=== PATIENT | female | born 1995 ===

== ENCOUNTER 2017-08-31 21:22 | Emergency (ER) | payer MEDICAID ==
[2017-08-31 21:38] VITALS: BP 130/85; PULSE 75; RESP 13; TEMP 98.3; O2SAT 100
[2017-08-31 22:26] LABS: BASO # 0.1 K/uL (0.0-0.2); BASO % 1.3 % (0.0-2.0); EOS % 0.7 % (0.0-4.0); HEMOGLOBIN 12.2 g/dL (12.0-16.0); LYMPH # 2.3 K/uL (1.0-4.3); LYMPH % 34.9 % (20.0-40.0); MEAN CELL VOLUME 76.5 fl (81.0-99.0); MEAN CORPUSCULAR HEMOGLOBIN 24.7 pg (27.0-31.0); MEAN CORPUSCULAR HGB CONC 32.3 g/dL (33.0-37.0); MEAN PLATELET VOLUME 8.9 fl (7.2-11.7); MONO # 0.5 K/uL (0.0-0.8); NEUT # 3.7 K/uL (1.8-7.0); NEUT % 56.1 % (50.0-75.0); NRBC % 0.1 % (0.0-0.0); RBC 4.93 Mil/uL (3.80-5.20); RED CELL DISTRIBUTION WIDTH 15.7 % (11.5-14.5); WHITE BLOOD COUNT 6.6 K/uL (4.8-10.8)
[2017-08-31 22:36] LABS: ALBUMIN 4.7 g/dL (3.5-5.0); ALT/SGPT 30 U/L (9-52); AST/SGOT 21 U/L (14-36); BLOOD UREA NITROGEN 13 mg/dl (7-17); CALCIUM 10.1 mg/dL (8.4-10.2); GFR AFRICAN-AMERICAN > 60; GFR NON-AFRICAN AMERICAN > 60
[2017-08-31 22:41] LABS: ALB/GLOB RATIO 1.2 (1.0-2.1)
[2017-08-31 22:53] LABS: INR 1.1 (0.9-1.2); PARTIAL THROMBOPLASTIN TIME 29.3 Seconds (25.6-37.1); PROTHROMBIN TIME 11.7 Seconds (9.8-13.1)
--- NOTE | 2017-08-31 23:18 | ED PDOC ---
Upper Extremity Pain/Injury Time Seen by Provider: 08/31/17 21:42 Chief Complaint (Nursing): Chest Pain Chief Complaint (Provider): Chest Pain History Per: Patient History/Exam Limitations: no limitations Onset/Duration Of Symptoms: Days (x1) Current Symptoms Are (Timing): Still Present Additional Complaint(s): 21 year old female who presents to the emergency department with a complaint of bilateral neck pain radiating to bilateral shoulders associated with left-sided chest pain exasperated with leaning head back and mild shortness of breath ongoing since this morning. Denied any fever, chills, cough, trauma, injury, headache, dizziness, leg pain or swelling. Of note, patient reported recent travel from [place] 2 weeks ago. LMP: 04/2016 PMD: Ryne Barfield MD Past Medical History Reviewed: Historical Data, Nursing Documentation, Vital Signs Vital Signs: Last Vital Signs Temp 98.3 F 08/31/17 21:34 Pulse 75 08/31/17 21:34 Resp 13 08/31/17 21:34 BP 130/85 08/31/17 21:34 Pulse Ox 100 08/31/17 21:34 - Medical History PMH: No Chronic Diseases - Surgical History Surgical History: Denies: No Surg Hx - Family History Family History: States: Unknown Family Hx - Social History Current smoker - smoking cessation education provided: No Alcohol: None Drugs: Denies - Immunization History Hx Tetanus Toxoid Vaccination: No Hx Influenza Vaccination: Yes Hx Pneumococcal Vaccination: No - Home Medications Home Medications: Ambulatory Orders Medication Instructions Recorded Multivit/Folic Acid/I 1 tab PO DAILY #30 tab 12/13/14 [ Plus] Nitrofurantoin Macrocrystals 100 mg PO BID #14 cap 04/12/16 [Macrobid] Cyclobenzaprine [Cyclobenzaprine 10 mg PO TID PRN #15 tab 08/31/17 HCl] Naproxen 500 mg PO BID #30 tab 08/31/17 - Allergies Allergies/Adverse Reactions: Allergies Allergy/AdvReac Type Severity Reaction Status Date / Time No Known Allergies Allergy Verified 08/31/17 21:38 Review of Systems ROS Statement: Except As Marked, All Systems Reviewed And Found Negative Constitutional: Negative for: Fever, Chills Cardiovascular: Positive for: Chest Pain (left-sided) Respiratory: Positive for: Shortness of Breath (mild). Negative for: Cough Musculoskeletal: Positive for: Neck Pain (bilateral), Shoulder Pain (bilateral) . Negative for: Leg Pain (or swelling), Other (trauma/injury) Neurological: Negative for: Headache, Dizziness Physical Exam - Reviewed Nursing Documentation Reviewed: Yes Vital Signs Reviewed: Yes - Physical Exam Appears: Positive for: Well (sitting up comfortably, is smiling), Non-toxic, No Acute Distress Head Exam: Positive for: ATRAUMATIC, NORMAL INSPECTION, NORMOCEPHALIC Skin: Positive for: Normal Color, Warm, Dry Eye Exam: Positive for: Normal appearance, EOMI, PERRL ENT: Positive for: Normal ENT Inspection Neck: Positive for: Pain On Movement Of Neck (bilateral tenderness). Negative for: Normal, Painless ROM, Decreased ROM Cardiovascular/Chest: Positive for: Regular Rate, Rhythm, Chest Non Tender. Negative for: Murmur Respiratory: Positive for: Normal Breath Sounds. Negative for: Decreased Breath Sounds, Wheezing, Respiratory Distress Extremity: Positive for: Normal ROM (upper/lower). Negative for: Tenderness, Pedal Edema (bilateral), Calf Tenderness (bilateral), Deformity, Swelling Neurologic/Psych: Positive for: Alert (x3), production zone leader II-XII, Oriented, Other ( speaking full sentences). Negative for: Motor/Sensory Deficits, Aphasia - Laboratory Results Result Diagrams: 08/31/17 22:23 08/31/17 22:23 - ECG O2 Sat by Pulse Oximetry: 100 (RA) Pulse Ox Interpretation: Normal Medical Decision Making Medical Decision Making: Initial Impression: Bilateral neck pain; shoulder pain; chest pain Initial Plan: * EKG * CMP * CBC * D Dimer * PTT * PT * Urine Uhcg (-) EKG : NSR at 79 bpm, no acute ST changes, as read by PA CXR : NAD, as read by PA Labs reviewed : d-dimer (-), rest of labs are wnl. On re-evaluation, patient reports no new complaints at this time. On exam, patient remains AAOx3, sitting up comfortably, in no acute distress, she is smiling. Breathing is easy and unlabored, speaking in full sentences. Neck supple, lungs clear to auscultation, cardiac RRR, repeat neuro exam shows no focal findings. Diagnostic results d/w the patient in great detail. Diagnosis of musculoskeletal neck and chest pain d/w the patient. Based on history, exam and diagnostic results, plan will be for outpatient follow up with pmd. Patient instructed to follow-up with pmd in 1-2 days without fail. Advised to take medication as prescribed. Return to the emergency room at any time for any new or worsening symptoms. Patient states she fully agrees with and understands discharge instructions. States that she agrees with the plan and disposition. Verbalized and repeated discharge instructions and plan. I have given the patient opportunity to ask any additional questions. Scribe Attestation: Documented by Karla Guy, acting as a scribe for Noemí Frye PA-C. Provider Scribe Attestation: All medical record entries made by the Scribe were at my direction and personally dictated by me. I have reviewed the chart and agree that the record accurately reflects my personal performance of the history, physical exam, medical decision making, and the department course for this patient. I have also personally directed, reviewed, and agree with the discharge instructions and disposition. Disposition - Clinical Impression Clinical Impression: Chest pain, Neck pain - Patient ED Disposition Is Patient to be Admitted: No Counseled Patient/Family Regarding: Studies Performed, Diagnosis, Need For Followup, Rx Given - Disposition Disposition: Routine/Home Disposition Time: 23:57 Condition: STABLE Additional Instructions: Thank you for letting us take care of you today. You were treated for musculoskeletal neck and chest pain. The emergency medical care you received today was directed at your acute symptoms. If you were prescribed any medication , please fill it and take as directed. It may take several days for your symptoms to resolve. Return to the Emergency Department if your symptoms worsen , do not improve, or if you have any other problems. Please contact your doctor in 2 days for re-evaluation and follow up. Bring any paperwork you were given at discharge with you along with any medications you are taking to your follow up visit. Our treatment cannot replace ongoing medical care by a primary care provider (PCP) outside of the emergency department. Thank you for allowing the [facility] team to be part of your care today. Prescriptions: Cyclobenzaprine [Cyclobenzaprine HCl] 10 mg PO TID PRN #15 tab PRN Reason: Muscle Spasm Naproxen 500 mg PO BID #30 tab Instructions: Chest Pain (ED), Muscle Spasm (ED) Forms: [employer] ([place]), [facility] ED School/Work Excuse Print Language: ARMENIAN - PA / MAIL WEIGHER / Resident Statement MD/DO has reviewed & agrees with the documentation as recorded.
--- NOTE | 2017-09-01 11:11 | RAD ---
HISTORY: Left upper chest pain COMPARISON: No prior. TECHNIQUE: Chest PA and lateral FINDINGS: LUNGS: No active pulmonary disease. PLEURA: No significant pleural effusion identified. No pneumothorax apparent. CARDIOVASCULAR: Normal. OSSEOUS STRUCTURES: No significant abnormalities. VISUALIZED UPPER ABDOMEN: Normal. OTHER FINDINGS: None. IMPRESSION: No active disease.
--- NOTE | 2017-09-01 16:49 | CARD ---
APPROVED REPORT EKG Measurement Heart [id number] <Conclusion> Normal sinus rhythm Normal ECG
== END 2017-09-01 01:00 | disposition home or self-care (01) ==
LOC: H.ER 21:22
DX: R07.89 Other chest pain (principal); M62.838 Other muscle spasm

== ENCOUNTER 2017-09-23 18:19 | Emergency (ER) | payer MEDICAID ==
[2017-09-23 18:29] VITALS: BP 127/64; PULSE 77; RESP 16; TEMP 98.2; O2SAT 98
--- NOTE | 2017-09-23 19:48 | ED PDOC ---
HPI: Chest Pain Time Seen by Provider: 09/23/17 19:12 Chief Complaint (Nursing): Chest Pain Chief Complaint (Provider): Chest Pain History Per: Patient History/Exam Limitations: no limitations Onset/Duration Of Symptoms: Days (x 2 weeks) Current Symptoms Are (Timing): Still Present Additional Complaint(s): 21 y/o female presents complaining of pressure-like pain across the chest for 2 weeks. Denies any associated shortness of breath, cough, or fever. Pain radiates to her right neck. Patient seen here 2 weeks ago for the same. Reports mild improvement with Naprosyn. PMD: Dr. Barfield Past Medical History Reviewed: Historical Data, Nursing Documentation, Vital Signs Vital Signs: Last Vital Signs Temp 98.2 F 09/23/17 18:23 Pulse 77 09/23/17 18:23 Resp 16 09/23/17 18:23 BP 127/64 09/23/17 18:23 Pulse Ox 98 09/23/17 19:49 - Medical History PMH: No Chronic Diseases - Surgical History Surgical History: - Family History Family History: States: Unknown Family Hx - Social History Current smoker - smoking cessation education provided: No Alcohol: None Drugs: Denies - Immunization History Hx Tetanus Toxoid Vaccination: No Hx Influenza Vaccination: Yes Hx Pneumococcal Vaccination: No - Home Medications Home Medications: Ambulatory Orders Medication Instructions Recorded Naproxen [Naprosyn] 500 mg PO Q12H #20 tab 09/23/17 Non-Formulary 1 ea .ROUTE Q6 #1 ea 09/23/17 - Allergies Allergies/Adverse Reactions: Allergies Allergy/AdvReac Type Severity Reaction Status Date / Time No Known Allergies Allergy Verified 08/31/17 21:38 Review of Systems ROS Statement: Except As Marked, All Systems Reviewed And Found Negative Constitutional: Negative for: Fever, Chills Cardiovascular: Positive for: Chest Pain (radiating to right neck) Respiratory: Negative for: Cough, Shortness of Breath Physical Exam - Reviewed Nursing Documentation Reviewed: Yes Vital Signs Reviewed: Yes - Physical Exam Appears: Positive for: Non-toxic, No Acute Distress Head Exam: Positive for: ATRAUMATIC, NORMOCEPHALIC Skin: Positive for: Normal Color Eye Exam: Positive for: Normal appearance Cardiovascular/Chest: Positive for: Regular Rate, Rhythm, Chest Non Tender. Negative for: Murmur Respiratory: Positive for: Normal Breath Sounds. Negative for: Accessory Muscle Use, Respiratory Distress Gastrointestinal/Abdominal: Positive for: Normal Exam, Bowel Sounds, Soft. Negative for: Tenderness, Distended Extremity: Positive for: Normal ROM, Capillary Refill (< 2 sec). Negative for: Pedal Edema, Deformity Neurologic/Psych: Positive for: Alert, Oriented - ECG O2 Sat by Pulse Oximetry: 98 (RA) Pulse Ox Interpretation: Normal Medical Decision Making Medical Decision Making: Time: 19:27 Initial Plan: * Flu swab Scribe Attestation: Documented by Kalie Vallejo, acting as a scribe for Subhash Hammond MD Provider Scribe Attestation: All medical record entries made by the Scribe were at my direction and personally dictated by me. I have reviewed the chart and agree that the record accurately reflects my personal performance of the history, physical exam, medical decision making, and the department course for this patient. I have also personally directed, reviewed, and agree with the discharge instructions and disposition. Disposition - Clinical Impression Clinical Impression: Chest pain - Patient ED Disposition Is Patient to be Admitted: No - Disposition Referrals: [facility] [Outside] Disposition: Routine/Home Disposition Time: 21:47 Condition: FAIR Prescriptions: Naproxen [Naprosyn] 500 mg PO Q12H #20 tab Non-Formulary 1 ea .ROUTE Q6 #1 ea Instructions: Chest Pain (ED) Forms: [employer] ([place])
== END 2017-09-23 22:15 | disposition home or self-care (01) ==
LOC: H.ER 18:19
DX: R07.9 Chest pain, unspecified (principal)

== ENCOUNTER 2018-09-30 18:55 | Emergency (ER) | payer MEDICAID ==
[2018-09-30 20:18] VITALS: O2SAT 100
[2018-09-30] MEDS ORDERED: Sodium Chloride 0.9% 1,000 ML IV STA (20:20)
--- NOTE | 2018-09-30 20:42 | ED PDOC ---
HPI: Abdomen Time Seen by Provider: 09/30/18 20:19 Chief Complaint (Nursing): GI Problem Chief Complaint (Provider): GI Problem History Per: Patient History/Exam Limitations: no limitations Onset/Duration Of Symptoms: Days (x4) Current Symptoms Are (Timing): Still Present Location Of Pain/Discomfort: Diffuse Quality Of Discomfort: Burning, "Pain" Associated Symptoms: Vomiting Additional Complaint(s): 22 year old female presents to the ED for evaluation of abdominal pain, multiple episodes of non-bloody, non-bilious vomiting and nausea for 4 days. Patient reports 3-4 episodes of vomiting each day. The pain is described as burning. Her last period was July 23, 2018. She states that she is usually irregular and does not believe there is a chance she is . Denies back pain, fever, diarrhea, hematuria, sick contacts and other complaints. PMD: Dr. Barfield Last Menstral Period: 07/23/2018 Past Medical History Reviewed: Historical Data, Nursing Documentation, Vital Signs Vital Signs: Last Vital Signs Temp 98.5 F 09/30/18 20:15 Pulse 74 09/30/18 20:15 Resp 16 09/30/18 20:15 BP 113/69 09/30/18 20:15 Pulse Ox 100 09/30/18 20:15 - Medical History PMH: No Chronic Diseases - Surgical History Surgical History: - Family History Family History: States: Unknown Family Hx - Social History Current smoker - smoking cessation education provided: No Alcohol: None Drugs: Cannabis - Home Medications Home Medications: Ambulatory Orders Medication Instructions Recorded Naproxen [Naprosyn] 500 mg PO Q12H #20 tab 09/23/17 RX: Non-Formulary 1 ea .ROUTE Q6 #1 ea 09/23/17 Acetaminophen [Acetaminophen 8 650 mg PO Q8 PRN #21 tablet.er 09/30/18 Hour] Ondansetron ODT [Zofran ODT] 4 mg PO Q6 PRN #12 odt 09/30/18 21/Iron Fu/Folic Acid 1 each PO DAILY #60 tablet 09/30/18 [ Complete Caplet] - Allergies Allergies/Adverse Reactions: Allergies Allergy/AdvReac Type Severity Reaction Status Date / Time No Known Allergies Allergy Verified 09/30/18 20:15 Review of Systems ROS Statement: Except As Marked, All Systems Reviewed And Found Negative Constitutional: Negative for: Fever Respiratory: Negative for: Shortness of Breath Gastrointestinal: Positive for: Vomiting, Abdominal Pain Genitourinary Female: Negative for: Frequency, Incontinence, Hematuria Physical Exam - Reviewed Nursing Documentation Reviewed: Yes Vital Signs Reviewed: Yes - Physical Exam Comments: GENERAL APPEARANCE: Patient is awake, alert, oriented x 3, in no distress. SKIN: Warm, dry; (-) cyanosis. ENMT: Mucous membranes dry. Airway patent, (-) stridor. NECK: Supple, FROM CHEST AND RESPIRATORY: (-) rales, (-) rhonchi, (-) wheezes; breath sounds equal bilaterally. Respirations nonlabored. HEART AND CARDIOVASCULAR: (-) irregularity ABDOMEN AND GI: Soft (+) tenderness in epigastric region. Bowel sounds active x4; (-) distention (-) guarding, (-) rebound, (-) palpable masses, (-) CVA tenderness. EXTREMITIES: (-) deformity, (-) edema, (+) distal pulses. NEURO AND PSYCH: Mental status as above; (-) focal findings. Gait: steady. Speech: clear. (-) facial asymmetry - Laboratory Results Result Diagrams: 09/30/18 20:45 09/30/18 20:45 - ECG O2 Sat by Pulse Oximetry: 100 (RA) Pulse Ox Interpretation: Normal Medical Decision Making Medical Decision Makin:20 Clinical Impression: abdominal pain and vomiting Initial Plan: --CBC --CMP --Lipase --Urine preg --Urine dip --Pepcid 20 mg IVP --Zofran 4 mg IVP --NS IV 1,000 mls --UA 20:50 Urine is positive. Patient was informed of results. Beta-HCG ordered. Patient denies any care. Patient reports last week she had light vaginal spotting for a week one week ago. UX UI DESIGNER: Laurent Gallagher. 221 Beta Quant reviewed, TV US ordered to confirm IUP. Labs otherwise grossly unremarkable. 224 Patient in U/S. 231 USArad report follows for T/V U/S Procedure OB Transvaginal Ultrasound History Vomiting. Comparison None available. Findings Uterus Single Live intrauterine gestation. CRL measures 1.8 cm, equivalent to 8 weeks 1 day gestation. Gestational sac diameter measures 3.4 cm, equivalent to 8 weeks 4 days gestation. Yolk sac is seen and measures 0.4 cm. Heart rate: 156 bpm. age (Ultrasound estimated): 8 weeks 3 days (+/-4 days) Francheska-gestational hemorrhage: None. Uterus measures 8.5 x 5.4 x 7.0 cm. No mass. Cervix Measures 4.1 cm. Closed. No cervical abnormality seen. Right Ovary Measures 2.9 x 1.5 x 2.3 cm. No mass. Normal flow. Left Ovary Measures 3.2 x 2.1 x 2.6 cm. No mass. Normal flow. Free Fluid None. Other Findings None. Impression 1. Single live intrauterine gestation - 8 weeks 3 days. 2. heart rate is 156 bpm.Electronically signed on Sep 30, 2018 11:06:01 PM EST by: Wyatt Schilling M.D., MBA Certified By ABR & CBC[facility] Fellowship Trained MRI and CT Specialist On re-evaluation, patient reports improvement of symptoms. On exam, patient remains AAOx3, in no acute distress. Lungs clear to auscultation, cardiac RRR, abdomen soft, non-tender, repeat neuro exam shows no focal findings. Vitals stable. Lab/Diagnostic results d/w the patient in great detail. Diagnosis of abdominal pain and vomiting, positive test, first trimester d/w the patient. Based on history, exam and diagnostic results, plan will be for outpatient follow up with OBGYN. Patient instructed to follow-up with pmd / referral provided / the clinic in 1- 2 days without fail. Advised to take medication as prescribed. Return to the emergency room at any time for any new or worsening symptoms. Patient states she fully agrees with and understands discharge instructions. States that she agrees with the plan and disposition. Verbalized and repeated discharge instructions and plan. I have given the patient opportunity to ask any additional questions. Scribe Attestation: Documented by Nita Devlin, acting as a scribe for Sindhu Castle PA-C Provider Scribe Attestation: All medical record entries made by the Scribe were at my direction and personally dictated by me. I have reviewed the chart and agree that the record accurately reflects my personal performance of the history, physical exam, medical decision making, and the department course for this patient. I have also personally directed, reviewed, and agree with the discharge instructions and disposition. Disposition - Clinical Impression Clinical Impression: Nausea and vomiting, Positive test, First trimester , Abdominal pain affecting - Patient ED Disposition Is Patient to be Admitted: No Counseled Patient/Family Regarding: Studies Performed, Diagnosis, Need For Followup, Rx Given - Disposition Referrals: Ryne Barfield MD [Primary Care Provider[facility]] Disposition: Routine/Home Disposition Time: 23:10 Condition: STABLE Additional Instructions: The emergency medical care you received today was directed at your acute symptoms. If you were prescribed any medication, please fill it and take as directed. It may take several days for your symptoms to resolve. Return to the Emergency Department if your symptoms worsen, do not improve, or if you have any other problems. Please contact your doctor in 2 days for re-evaluation and follow up / or call one of the physicians/clinics you have been referred to that are listed on the Patient Visit Information form that is included in your discharge packet. Bring any paperwork you were given at discharge with you along with any medications you are taking to your follow up visit. Our treatment cannot replace ongoing medical care by a primary care provider (PCP) outside of the emergency department. Prescriptions: Acetaminophen [Acetaminophen 8 Hour] 650 mg PO Q8 PRN #21 tablet.er PRN Reason: Pain, Moderate (4-7) Ondansetron ODT [Zofran ODT] 4 mg PO Q6 PRN #12 odt PRN Reason: Nausea/Vomiting 21/Iron Fu/Folic Acid [ Complete Caplet] 1 each PO DAILY #60 tablet Instructions: Acute Abdomen (Belly Pain), Adult (DC), Nausea and Vomiting, Adult, Activity During , Care, - The Second Month, - The Third Month, - The Fourth Month, - The Fifth Month Forms: [employer] (Greek), [facility] ED School/Work Excuse Print Language: TURKISH - POA Present On Arrival: None Results - Lab Results Lab Results: 09/30/18 09/30/18 09/30/18 21:06 20:45 20:45 WBC 6.7 RBC 4.27 Hgb 11.8 L Hct 35.4 MCV 82.9 D MCH 27.5 MCHC 33.2 RDW 13.7 Plt Count 169 MPV 9.7 Neut % (Auto) 64.6 Lymph % (Auto) 28.0 [place] % (Auto) 6.0 Eos % (Auto) 0.7 Baso % (Auto) 0.7 Neut # (Auto) 4.3 Lymph # (Auto) 1.9 [place] # (Auto) 0.4 Eos # (Auto) 0.0 Baso # (Auto) 0.0 Sodium 137 Potassium 4.3 Chloride 101 Carbon Dioxide 22 Anion Gap 18 BUN 10 Creatinine 0.6 L Est GFR ( Amer) > 60 Est GFR (Non-Af Amer) > 60 Random Glucose 94 Calcium 9.9 Total Bilirubin 0.3 AST 17 ALT 17 Alkaline Phosphatase 60 Total Protein 7.8 Albumin 4.4 Globulin 3.4 Albumin/Globulin Ratio 1.3 Lipase 62 Beta HCG, Quant [id number] Urine Color Urine Clarity Urine pH Ur Specific [place] Urine Protein Urine Glucose (UA) Urine Ketones Urine Blood Urine Nitrate Urine Bilirubin Urine Urobilinogen Ur Leukocyte Esterase Urine RBC (Auto) Urine Microscopic WBC Ur Squamous Epith Cells Urine Bacteria 09/30/18 20:45 WBC RBC Hgb Hct MCV MCH MCHC RDW Plt Count MPV Neut % (Auto) Lymph % (Auto) [place] % (Auto) Eos % (Auto) Baso % (Auto) Neut # (Auto) Lymph # (Auto) [place] # (Auto) Eos # (Auto) Baso # (Auto) Sodium Potassium Chloride Carbon Dioxide Anion Gap BUN Creatinine Est GFR ( Amer) Est GFR (Non-Af Amer) Random Glucose Calcium Total Bilirubin AST ALT Alkaline Phosphatase Total Protein Albumin Globulin Albumin/Globulin Ratio Lipase Beta HCG, Quant Urine Color Yellow Urine Clarity Clear Urine pH 6.0 Ur Specific [place] 1.011 Urine Protein Negative Urine Glucose (UA) Neg Urine Ketones 20 Urine Blood Negative Urine Nitrate Negative Urine Bilirubin Negative Urine Urobilinogen 0.2-1.0 Ur Leukocyte Esterase Neg Urine RBC (Auto) 2 Urine Microscopic WBC 2 Ur Squamous Epith Cells 1 Urine Bacteria Rare
[2018-09-30 20:54] LABS: SQUAMOUS EPITHIAL 1 /hpf (0-5); URINE BACTERIA RARE (<OCC); URINE BILIRUBIN NEGATIVE (NEGATIVE); URINE BLOOD NEGATIVE (NEGATIVE); URINE CLARITY CLEAR (Clear); URINE COLOR YELLOW (YELLOW); URINE GLUCOSE (UA) NEG (NEGATIVE); URINE LEUKOCYTE ESTERASE NEG Leu/uL (Negative); URINE PROTEIN NEGATIVE (NEGATIVE); URINE UROBILINOGEN 0.2-1.0 mg/dL (0.2-1.0)
[2018-09-30 20:55] LABS: BASO % 0.7 % (0.0-2.0); EOS % 0.7 % (0.0-4.0); HEMOGLOBIN 11.8 g/dL (12.0-16.0); LYMPH # 1.9 K/uL (1.0-4.3); MEAN CELL VOLUME 82.9 fl (81.0-99.0); MEAN CORPUSCULAR HEMOGLOBIN 27.5 pg (27.0-31.0); MEAN CORPUSCULAR HGB CONC 33.2 g/dL (33.0-37.0); MEAN PLATELET VOLUME 9.7 fl (7.2-11.7); MONO # 0.4 K/uL (0.0-0.8); NEUT # 4.3 K/uL (1.8-7.0); NEUT % 64.6 % (50.0-75.0); RBC 4.27 Mil/uL (3.80-5.20); RED CELL DISTRIBUTION WIDTH 13.7 % (11.5-14.5); WHITE BLOOD COUNT 6.7 K/uL (4.8-10.8)
[2018-09-30 21:02] LABS: ALB/GLOB RATIO 1.3 (1.0-2.1); ALBUMIN 4.4 g/dL (3.5-5.0); ALT/SGPT 17 U/L (9-52); AST/SGOT 17 U/L (14-36); BLOOD UREA NITROGEN 10 mg/dl (7-17); CALCIUM 9.9 mg/dL (8.4-10.2); GFR NON-AFRICAN AMERICAN > 60; LIPASE 62 U/L (23-300)
[2018-09-30 23:34] VITALS: BP 103/56; PULSE 69; RESP 18; TEMP 98.2
--- NOTE | 2018-10-01 12:37 | US ---
Date of service: 09/30/2018 PROCEDURE: OB Pelvic Ultrasound HISTORY: confirm IUP COMPARISON: None available. FINDINGS: UTERUS: Single Live intrauterine gestation. CRL measures 1.8 cm equivalent to 8 weeks and 1 day of gestational age. Gestational sac diameter measures 3.4 cm equivalent to 8 weeks and 4 days of gestational age. age (Ultrasound estimated): 8 weeks and 3 days Date of delivery (Ultrasound estimated) : 05/09/2019 Heart rate: 156 bpm. Francheska-gestational hemorrhage: None. Uterus measures 8.5 x 5.4 x 7.0 cm. No mass CERVIX: Long and closed. No cervical abnormality seen. RIGHT OVARY: Measures 2.9 x 1.5 x 2.3 cm. No mass. Normal flow. LEFT OVARY: Measures 3.2 x 2.1 x 2.6 cm. No mass. Normal flow. FREE FLUID: None. OTHER FINDINGS: None. IMPRESSION: Single live intrauterine gestation with mean gestational age of 8 weeks and 3 days. The estimated date of delivery by ultrasound is 05/09/2019. Clinical follow-up is advised. A preliminary report was provided by [facility].
== END 2018-09-30 23:36 | disposition home or self-care (01) ==
LOC: H.ER 18:55
DX: R11.2 Nausea with vomiting, unspecified (principal); O26.91 Pregnancy related conditions, unspecified, first trimester; R10.2 Pelvic and perineal pain; Z32.01 Encounter for pregnancy test, result positive; Z3A.08 8 weeks gestation of pregnancy
CPT/HCPCS: 76817; 80053; 81003; 81025; 83690; 84702; 85025; 96361; 96374; 96375; 99283; J2405; J7030